=== PATIENT | male | born 1955 | race Two or more races ===

== ENCOUNTER 2017-06-22 17:49 | Emergency (ER) | payer OTHER ==
[~2017-06-22] VITALS: Ht 175.3 cm; Wt 86.2 kg
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
[2017-06-22] MEDS ORDERED: HYDROCODONE BIT/HOMATROPINE 5 ML UDC ONE (18:20)
[2017-06-22] MEDS ORDERED: HYDROCODONE BIT/HOMATROPINE 5 ML UDC PO ONE (18:30)
[2017-06-22] MEDS ORDERED: IBUPROFEN 600 MG TABLET PO ONE ×2 (20:43→21:00)
--- NOTE | 2017-06-22 21:27 | NUR ---
Patient discharged to home in stable condition. Written and verbal after care instructions given. Patient verbalizes understanding of instruction. Prescription given.
[2017-06-22 21:30] VITALS: BP 155/98
== END 2017-06-22 21:31 | disposition home or self-care (01) ==
LOC: ER 17:51
DX: J40 Bronchitis, not specified as acute or chronic (principal); I25.2 Old myocardial infarction; I10 Essential (primary) hypertension; Z59.0 Homelessness
CPT/HCPCS: 71045-TC; A4606; Z7610

== ENCOUNTER 2018-04-25 18:24 | Emergency (ER) | payer SELFPAY ==
[~2018-04-25] VITALS: Ht 172.7 cm; Wt 83.9 kg
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
[2018-04-25 19:15] VITALS: BP 134/85
== END 2018-04-25 20:02 | disposition left against medical advice (07) ==
LOC: ER 18:26
DX: M79.672 Pain in left foot (principal); M79.671 Pain in right foot; I10 Essential (primary) hypertension; I25.2 Old myocardial infarction; M19.90 Unspecified osteoarthritis, unspecified site; Z98.890 Other specified postprocedural states; Z59.0 Homelessness; Z95.818 Presence of other cardiac implants and grafts
CPT/HCPCS: 99283; A4606; A6403; Z7610

== ENCOUNTER 2018-05-08 15:37 | Emergency (ER) | payer SELFPAY ==
[~2018-05-08] VITALS: Ht 167.6 cm; Wt 74.8 kg
[2018-05-08 15:37] VITALS: BP 146/89
--- NOTE | 2018-05-08 16:37 | NUR ---
WALKED OUT OF ER WITH CLOTHES/SHOES PROVIDED BY KALPANA RUIZ AND SANDWICH AND JUICE FROM [facility]
== END 2018-05-08 16:41 | disposition home or self-care (01) ==
LOC: ER 15:42
DX: J20.9 Acute bronchitis, unspecified (principal); I10 Essential (primary) hypertension; M19.90 Unspecified osteoarthritis, unspecified site; F17.200 Nicotine dependence, unspecified, uncomplicated; I25.2 Old myocardial infarction; Z59.0 Homelessness; Z98.890 Other specified postprocedural states; Z60.2 Problems related to living alone
CPT/HCPCS: 99283; A4606; Z7610

== ENCOUNTER 2018-12-17 11:29 | Emergency (ER) | payer OTHER ==
[~2018-12-17] VITALS: Ht 177.8 cm; Wt 99.8 kg
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
[2018-12-17] MEDS ORDERED: ACETAMINOPHEN 325 MG TABLET PO ONE (13:00)
[2018-12-17] MEDS ORDERED: ACETAMINOPHEN 325 MG TABLET ONE (13:00)
--- NOTE | 2018-12-17 13:24 | NUR ---
PT RESTING COMFORTABLY IN BED. NO COMPLAINTS AT THIS TIME. VSS. WILL CONT TO MONITOR.
--- NOTE | 2018-12-17 13:55 | NUR ---
Patient discharged to [facility] in stable condition. Written and verbal after care instructions given. Patient verbalizes understanding of instruction.
[2018-12-17 13:57] VITALS: BP 164/95
== END 2018-12-17 15:09 ==
LOC: ER 11:30
DX: S05.11XA Contusion of eyeball and orbital tissues, right eye, initial encounter (principal); S09.8XXA Other specified injuries of head, initial encounter; R51 Headache; I10 Essential (primary) hypertension; I25.2 Old myocardial infarction; F17.200 Nicotine dependence, unspecified, uncomplicated; F12.10 Cannabis abuse, uncomplicated; Z98.890 Other specified postprocedural states; Z60.2 Problems related to living alone; Z02.89 Encounter for other administrative examinations; Y04.8XXA Assault by other bodily force, initial encounter; Y93.89 Activity, other specified; Y92.89 Other specified places as the place of occurrence of the external cause; Y99.8 Other external cause status
CPT/HCPCS: 70450-TC

== ENCOUNTER 2022-08-19 20:48 | Emergency (ER) | payer MEDICARE, OTHER ==
[~2022-08-19] VITALS: Ht 175.3 cm; Wt 117.9 kg
--- NOTE | 2022-08-19 22:51 | NUR ---
BIBSELF C/O LEFT SIDED CHEST PAIN, CONSTANT NON RADIATING SINCE 4PM TODAY. PT A/OX4. TOLERATING R/A WELL WITH NO RESP DISTRESS. CONNECTED PT TO POX AND MONITOR. SAFETY MEASURES IN PLACE.
[2022-08-19] MEDS ORDERED: ASPIRIN 325 MG TABLET PO ONE (23:00)
[2022-08-19] MEDS ORDERED: ASPIRIN 325 MG TABLET ONE (23:06)
--- NOTE | 2022-08-19 23:25 | NUR ---
LAC #20G S/L BLOOD COLLECTED AND SENT TO LAB
--- NOTE | 2022-08-19 23:27 | NUR ---
Ramandeep canas in [facility] - 08/19/22 at 2327 by CHITO URINE COLLECTED AND SENT TO LAB
[2022-08-19 23:36] LABS: BASOPHILS % (AUTO) 0.4 % (0.0-2.0); EOSINOPHILS % (AUTO) 3.2 % (0.0-6.0); HEMATOCRIT 36 % (39-51); HEMOGLOBIN 11.8 g/dL (13.5-17.5); LYMPHOCYTES % (AUTO) 22.4 % (20.0-44.0); MEAN CORPUSCULAR HGB CONC 33 g/dl (31.0-36.0); MEAN CORPUSCULAR VOLUME 85 fL (80-96); MONOCYTES # (AUTO) 0.8 K/uL (0.1-1.30); MONOCYTES % (AUTO) 8.6 % (2.0-12.0); NEUTROPHILS # (AUTO) 5.8 K/uL (1.8-8.9); NEUTROPHILS % (AUTO) 65.4 % (43.0-81.0); PLATELET COUNT (AUTO) 245 K/uL (150-450); RED BLOOD CELL COUNT(AUTO) 4.28 MIL/uL (4.5-6.0); WHITE BLOOD COUNT (AUTO) 8.8 K/uL (4.3-11.0)
--- NOTE | 2022-08-19 23:39 | NUR ---
METAL MOULDER AT PT'S BEDSIDE FOR CHRISTINE
[2022-08-20 00:08] LABS: ALANINE AMINOTRANSFERASE 42 U/L (12-78); ALBUMIN 3.5 g/dL (3.4-5.0); ALKALINE PHOSPHATASE 69 U/L (46-116); ASPARTATE AMINOTRANSFERASE 55 U/L (15-37); BILIRUBIN,DIRECT 0.2 mg/dL (0.0-0.2); BILIRUBIN,TOTAL 0.8 mg/dL (0.2-1.0); CALCIUM, SERUM 8.8 mg/dL (8.5-10.1); CARBON DIOXIDE 29 mmol/L (21-32); CHLORIDE 103 mmol/L (98-107); GLUCOSE 129 mg/dL (74-106); POTASSIUM 3.4 mmol/L (3.5-5.1); SODIUM SERUM 139 mmol/L (136-145); TOTAL PROTEIN, SERUM 7.5 g/dL (6.4-8.2); UREA NITROGEN, BLOOD 22 mg/dL (7-18)
[2022-08-20 00:12] LABS: CREATININE 1.1 mg/dL (0.6-1.3)
[2022-08-20] MEDS ORDERED: ACETAMINOPHEN ES 500 MG TABLET ONE (02:13)
[2022-08-20] MEDS ORDERED: ACETAMINOPHEN ES 500 MG TABLET PO ONE (02:30)
--- NOTE | 2022-08-20 02:31 | NUR ---
Patient discharged to home in stable condition. Written and verbal after care instructions given. Patient verbalizes understanding of instruction. IV removed. Catheter intact and site benign. Pressure and 4x4 applied to site. No bleeding noted.
[2022-08-20 03:47] VITALS: BP 135/78
== END 2022-08-20 03:48 | disposition home or self-care (01) ==
LOC: ER 20:52
DX: R07.89 Other chest pain (principal); F17.200 Nicotine dependence, unspecified, uncomplicated; Z59.00 Homelessness unspecified
CPT/HCPCS: 36415; 71045-TC; 80048-TC; 80076-TC; 83880; 84484-TC; 85025-TC; 85730-TC